=== PATIENT | male | born 1980 | race Hispanic/Latino ===

== ENCOUNTER 2020-07-07 10:45 | Emergency (ER) | payer SELFPAY ==
[2020-07-07] MEDS ORDERED: PENICILLIN V POTASSIUM 500 MG TABLET ONE (11:18)
[2020-07-07] MEDS ORDERED: KETOROLAC TROMETHAMINE 30MG/ML ONE (11:18)
== END 2020-07-07 11:45 | disposition home or self-care (01) ==
LOC: EDH 10:45
DX: K03.81 Cracked tooth (principal); K02.9 Dental caries, unspecified; Z88.8 Allergy status to other drugs, medicaments and biological substances
CPT/HCPCS: 96372; 99283; J1885

== ENCOUNTER 2024-07-23 12:36 | Emergency (ER) | payer SELFPAY ==
[~2024-07-23] VITALS: Ht 175.3 cm; Wt 68.0 kg
--- NOTE | 2024-07-23 12:53 | ERN ---
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 LAST TETANUS SHOT IS UNKNOWN NO ACTIVE BLEEDING AT THIS TIME. HE HAS NOT TAKEN ANYTHING PRIOR TO ARRIVAL FOR PAIN. WHEN I ASSESSED HIM IN TRIAGE, HE TOLD ME HE DID NOT WANT ANY OPIATES AND SAID HE WOULD TAKE ANYTHING LESS THAN AT FOR PAIN. Allergies: Coded Allergies: diphenhydramine (Unverified Allergy, Unknown, 07/07/20) Home Meds Active Scripts Ibuprofen (Ibuprofen 800 mg Tab) 800 Mg Tab, 800 MG PO Q8H PRN for fever or pain, #30 TAB 0 Refills Prov:GENTRY COOL AUTOMATIC OUTSOLE CUTTER 07/23/24 Cephalexin (Cephalexin) 500 Mg Tablet, 1 TAB PO TID for 10 Days, #30 TAB 0 Refills Prov:GENTRY COOL AUTOMATIC OUTSOLE CUTTER 07/23/24 Past Medical History Past Medical History: No Pertinent History Surgical History: Other RN Note Reviewed/Agreed w/PFSH: Yes Review of System Dictation CONSTITUTIONAL: NEGATIVE EXCEPT FOR HPI HEAD/FACE: NEGATIVE EXCEPT FOR HPI EENT: NEGATIVE EXCEPT FOR HPI RESPIRATORY: NEGATIVE EXCEPT FOR HPI GASTROINTESTINAL/ABDOMINAL: NEGATIVE EXCEPT FOR HPI GENITOURINARY: NEGATIVE EXCEPT FOR HPI MUSCULOSKELETAL: NEGATIVE EXCEPT FOR HPI INTEGUMENTARY: NEGATIVE EXCEPT FOR HPI DISTAL LEFT 3RD AND 4TH FINGER PADS PARTIAL AMPUTATION NEUROLOGICAL/PSYCH: NEGATIVE EXCEPT FOR HPI HEMATOLOGIC/LYMPHATIC: NEGATIVE EXCEPT FOR HPI ALL SYSTEMS NEGATIVE, EXCEPT NOTED ABOVE. 13 POINT REVIEW OF SYSTEMS ASSESSED AND ALL NEGATIVE EXCEPT FOR ABOVE. Initial Vital Sign VS Vital Signs Date Time Temp Pulse Resp B/P (MAP) Pulse Ox O2 Delivery O2 Flow Rate FiO2 07/23/24 12:40 98.8 87 20 141/63 99 Room Air* 0 21 Physical Exam Dictation VITAL SIGNS REVIEWED GENERAL APPEARANCE: ALERT, ORIENTED X 3, MODERATE ACUTE DISTRESS, WELL DEVELOPED, NOURISHED. REFUSED OPIATE NARCOTIC PAIN RELIEF HEAD AND FACE: NON-TRAUMATIC. EYES: PERRL, PINK CONJUNCTIVAS, EYELID NO TRAUMA, ANTERIOR CHAMBER WITH ARCUS SENILIS. EARS: PINNAS INTACT AND NO SIGNS OF TRAUMA OR ERYTHEMA EAR CANALS CLEAR AND NO DISCHARGE TM NO ERYTHEMA NOSE: NO DISCHARGE, NO BLEEDING. OROPHARYNX: MOUTH NORMAL, TONGUE PINK, PHARYNX CLEAR,NO ERYTHEMA, TONSILS NO EXUDATES, NO ABSCESSES NOTED, MUCOUS MEMBRANE MOIST NECK: SUPPLE, NON-TENDER, NO THYROMEGALY, NO MASSES, NO JVD, NO BRUITS BREAST:DEFERRED CHEST:NO TENDERNESS, NO CREPITUS, NO PARADOXICAL MOVEMENT, NO RETRACTIONS LUNGS:CLEAR, WELL-VENTILATED, SYMMETRIC, NO RALES, NO WHEEZING, NO RHONCHI, NO STRIDOR, GOOD BREATH SOUNDS BILATERALLY HEART: REGULAR RATE, REGULAR RHYTHM, NO MURMUR, NO GALLOPS VASCULAR: NO PERIPHERAL EDEMA, ABDOMEN: SOFT, POSITIVE BOWEL SOUNDS, NONDISTENDED, NO GUARDING, NONTENDER, NO REBOUND, NO MASSES NO HEPATOMEGALY, NO SPLENOMEGALY, NO SAHNI'S SIGN, NO HERNIAS. RECTAL: DEFERRED GENITAL: DEFERRED NEUROLOGICAL: NORMAL SPEECH, MOTOR FUNCTION INTACT, SENSORY FUNCTION INTACT MUSCULOSKELETAL: NECK NONTENDER, FULL RANGE OF MOTION, BACK NONTENDER, FULL RANGE OF MOTION, EXTREMITIES: NONTENDER, FULL RANGE OF MOTION SKIN: COLOR PINK, PARTIAL AMPUTATION OF DISTAL LEFT 3RD AND 4TH FINGER PADS LYMPHATIC: DEFERRED Results (Laboratory/Radiology) Laboratory/Radiology HAND 3+VWS LT REASON: DISTAL LACERATIONS TO LEFT 3RD AND 4TH FINGERS TECHNIQUE: 3 views were obtained. FINDINGS: There is no evidence of fracture or dislocation. There is no joint effusion. The soft tissues appear unremarkable. There is no evidence of a radiopaque foreign body. IMPRESSION: No acute findings. Labs Reviewed?: Yes ED Course ED Course Orders Procedure Category Date Status Time Hand 3+Vws Lt RAD 07/23/24 Resulted 12:48 Neomy PHA 07/23/24 Complete Sulf/Bacitra/Polymyxin 13:00 Ketorolac 60mg/2ml PHA 07/23/24 Complete (Toradol 60mg/2ml) 13:00 Cephalexin 500 Mg PHA 07/23/24 Complete Capsule (Keflex 500 Mg 13:00 Lidocaine Hcl 1% 20ml PHA 07/23/24 Complete Vial (Lidocaine Hc 13:00 Current Medications Medications (Trade) Dose Ordered Sig/Melanie Route PRN Reason Start Time Stop Time Status Last Admin Dose Admin Cephalexin (Keflex 500 MG CAPS) 1,000 mg ONCE ONCE PO 07/23/24 13:00 07/23/24 13:01 DC 12/12/24 13:02 Ketorolac Tromethamine (toRADol 60MG/ 2ML) 60 mg ONCE ONCE IM 07/23/24 13:00 07/23/24 13:01 DC 07/23/24 13:02 Lidocaine HCl (Lidocaine HCl 1% 20ml Vial) 10 ml ONCE INJ 07/23/24 13:00 07/23/24 15:28 DC 07/23/24 13:02 Neomycin/ Polymyxin/ Bacitracin (Triple Antibiotic Ointment) 1 appl ONCE ONCE TP 07/23/24 13:00 07/23/24 13:01 DC 07/23/24 13:02 Vital Signs Date Time Temp Pulse Resp B/P (MAP) Pulse Ox O2 Delivery O2 Flow Rate FiO2 07/23/24 15:27 97.9 95 16 115/78 97 Room Air* 0 21 07/23/24 12:41 97.9 95 16 130/98 97 Room Air 0 07/23/24 12:40 98.8 87 20 141/63 99 Room Air* 0 21 Medical Decision Making [facility] MEDICAL DISCHARGE MAKING BASED ON X-RAY OF RIGHT HAND, TETANUS UPDATE AND LACER ATION REPAIR TETANUS WAS UPDATED, PATIENT GIVEN CEPHALEXIN1 G LOAD DISCHARGED HOME WITH IBUPROFEN AND CEPHALEXIN SUTURES OUT IN 7-10 DAYS PER HIS PRIMARY CARE DOCTOR KEEP HANDS CLEAN AND DRY. Procedure Procedure Dictation: FOURTEEN 50, PROCEDURE EXPLAINED TO PATIENT HE AGREED TO PROCEED MEDIAL PHALANX RIGHT 3RD AND 4TH FINGERS PREPPED STERILELY 3 ML 1% LIDOCAINE PLAIN EACH FOR DIGITAL BLOCK FINGER CLEANSED WITH WOUND CLEANSER. DISTAL RIGHT 3RD LACERATION2 CM CLOSED WITH FIVE 4-0 PROLENE SIMPLE INTERRUPTED DISTAL 4TH FINGER PAD IS AVULSED APPROXIMATED WITH TWO 4-0 PROLENE SIMPLE INTERRUPTED PATIENT AWARE THAT IT WILL HEAL BY SECONDARY INTENTION DX & DISP Disposition: Discharge Departure Impression: Primary Impression: Laceration of right middle finger Additional Impression: Laceration of right ring finger Condition: Stable Scripts Ibuprofen (Ibuprofen 800 mg Tab) 800 Mg Tab 800 MG PO Q8H PRN for fever or pain, #30 TAB 0 Refills Prov: GENTRY COOL NP 07/23/24 Cephalexin (Cephalexin) 500 Mg Tablet 1 TAB PO TID for 10 Days, #30 TAB 0 Refills Prov: GENTRY COOL NP 07/23/24 Additional Instructions: FOLLOW-UP WITH PRIMARY CARE PROVIDER IN 1 TO 2 DAYS. TAKE MEDICATIONS DIRECTED HERE IN THE EMERGENCY ROOM. OKAY TO CONTINUE HOME MEDICATIONS UNLESS OTHERWISE DISCUSSED DURING YOUR VISIT IN THE EMERGENCY ROOM TODAY. RETURN TO YOUR NEAREST EMERGENCY ROOM IF SYMPTOMS WORSEN OR IF THERE IS NO IMPROVEMENT. CALL 911 IF YOU NEED IMMEDIATE ASSISTANCE. TAKE TYLENOL OR MOTRIN [id number] NEEDED AND IF NO CONTRAINDICATIONS ARE PRESENT. INCREASE ORAL HYDRATION. A WOUND CULTURE OR URINE CULTURE WAS ORDERED HERE IN THE EMERGENCY ROOM DEPARTMENT PLEASE FOLLOW-UP WITH PRIMARY CARE PROVIDER AND ADVISE THEM TO GET REPEAT PORTS FROM OUR FACILITY. IF YOU HAD ANY MILAGROS WRAP/SPLINTS THAT WERE APPLIED HERE, PLEASE DO NOT REMOVE THEM UNTIL YOU SEE YOUR PRIMARY CARE OR SPECIALTY. KEEP LACERATION REPAIR CLEAN AND DRY UNTIL SUTURES ARE REMOVED BY YOUR DOCTOR. APPLY TRIPLE ANTIBIOTIC OINTMENT/[id number] TIMES A DAY FOR FIVE DAYS AND COVERED WITH DRESSING. SUTURES OUT IN 10 DAYS Referrals: SELF,REFERRAL (PCP) Time of Disposition: 15:03 I have reviewed the case, and I agree with, Diagnosis and Plan I performed a substantive portion of the visit. I have reviewed and personally made and approve the management plan that is documented in the notes by myself with PROSPER/resident. I acknowledged full responsibility for the patient's management plan. GENTRY COOL NP Jul 23, 2024 12:53 MAHENDRA MORAN DO Jul 23, 2024 15:36
[2024-07-23] MEDS: LIDOCAINE HCL 1% 20 ML VIAL INJ SCH (13:02)
[2024-07-23] MEDS: ketOROlac 60 MG VIAL (30MG/ML) IM ONE (13:02)
[2024-07-23] MEDS: NEOMY SULF/BACITRA/POLYMYXIN B 1 EACH PACKET TP ONE (13:02)
[2024-07-23] MEDS: cePHALexin 500 MG CAPSULE PO ONE (13:02)
--- NOTE | 2024-07-23 14:54 | HMCIMG ---
HAND 3+VWS LT REASON: DISTAL LACERATIONS TO LEFT 3RD AND 4TH FINGERS TECHNIQUE: 3 views were obtained. FINDINGS: There is no evidence of fracture or dislocation. There is no joint effusion. The soft tissues appear unremarkable. There is no evidence of a radiopaque foreign body. IMPRESSION: No acute findings.
--- NOTE | 2024-07-23 15:03 | NUR ---
suture repai to left hand done by OLIVIA steele. 5 sutures noted to distal tip of middle finger, 2 sutures noted to distal tip of ring finger. site was cleaned, bacitracin was applied to wound and wound was bandaged.
[2024-07-23] MEDS ORDERED: IBUP-2077 PO (15:05)
[2024-07-23] MEDS ORDERED: CEPH500T PO (15:05)
[2024-07-23 15:27] VITALS: BP 115/78; PULSE 95; RESP 16; TEMP 97.9; O2SAT 97
== END 2024-07-23 15:27 | disposition home or self-care (01) ==
LOC: EDH 12:36
DX: S61.215A Laceration without foreign body of left ring finger without damage to nail, initial encounter (principal); S61.213A Laceration without foreign body of left middle finger without damage to nail, initial encounter; Z79.899 Other long term (current) drug therapy; W26.8XXA Contact with other sharp object(s), not elsewhere classified, initial encounter; Y93.89 Activity, other specified; Y92.89 Other specified places as the place of occurrence of the external cause; Y99.8 Other external cause status
CPT/HCPCS: 99283; 73130; 12002; 96372; J1885; 12001